=== PATIENT | female | born 1985 | race Caucasian/White ===

== ENCOUNTER 2023-09-04 13:09 | Emergency (ER) | payer MEDICAID ==
[~2023-09-04] VITALS: Ht 162.6 cm; Wt 68.0 kg
[2023-09-04 13:10] VITALS: BP_SYST 132; PULSE 102; RESP 17; TEMP 97.6; O2SAT 98
[2023-09-04 14:05] LABS: BILIRUBIN,URINE 2+ (NEGATIVE); BLOOD, URINE 3+ (NEGATIVE); GLUCOSE,URINE 1+ (NEGATIVE); KETONES,URINE TRACE (NEGATIVE); LEUKOCYTE ESTERASE ,URINE 2+ (NEGATIVE); NITRITE, URINE POSITIVE (NEGATIVE); PH,URINE 6.5 (5.0-8.0); PROTEIN URINE 3+ (NEGATIVE)
[2023-09-04 14:08] LABS: CLARITY/URINE HAZY (CLEAR); UROBILINOGEN,URINE >=8 (0.2-1.0)
[2023-09-04 14:25] LABS: BACTERIA,URINE RARE /HPF (None Seen); RBC,URINE 20-50 /HPF (0-3)
[2023-09-04 14:26] LABS: COLOR,URINE AMBER (YELLOW)
[2023-09-04] MEDS ORDERED: NITR-85 PO (15:17)
[2023-09-04] MEDS ORDERED: PHEN-726 PO (15:17)
[2023-09-04 15:28] VITALS: BP_SYST 132; PULSE 102; RESP 17; TEMP 97.6; O2SAT 98
== END 2023-09-04 15:28 | disposition home or self-care (01) ==
LOC: SED 13:09
DX: N39.0 Urinary tract infection, site not specified (principal); R31.9 Hematuria, unspecified; R35.0 Frequency of micturition; Z88.2 Allergy status to sulfonamides; Z79.899 Other long term (current) drug therapy
CPT/HCPCS: 81000; 81001; 81015; 87086; 87186; 99283

== ENCOUNTER 2023-10-02 12:32 | Emergency (ER) | payer MEDICAID ==
[~2023-10-02] VITALS: Ht 157.5 cm; Wt 73.5 kg
[~2023-10-02 12:32] MED LIST: NITR-85 PO; PHEN-726 PO
[2023-10-02 12:36] VITALS: BP_SYST 144; PULSE 92; RESP 18; TEMP 98.3; O2SAT 100
[2023-10-02 13:26] LABS: BILIRUBIN,URINE NEGATIVE (NEGATIVE); BLOOD, URINE 3+ (NEGATIVE); COLOR,URINE YELLOW (YELLOW); GLUCOSE,URINE NEGATIVE (NEGATIVE); KETONES,URINE NEGATIVE (NEGATIVE); LEUKOCYTE ESTERASE ,URINE NEGATIVE (NEGATIVE); NITRITE, URINE NEGATIVE (NEGATIVE); PROTEIN URINE NEGATIVE (NEGATIVE); UROBILINOGEN,URINE 0.2 (0.2-1.0)
[2023-10-02 13:44] LABS: CLARITY/URINE SLIGHTLY HAZY (CLEAR)
[2023-10-02 13:49] LABS: BACTERIA,URINE None Seen /HPF (None Seen); WBC,URINE 0-3 /HPF (0-3)
[2023-10-02 13:50] LABS: TRICHOMONAS,URINE Rare /HPF (None Seen)
[2023-10-02] MEDS: MORPHINE 2 MG/ML INJ. SYRINGE IVP ONE (14:41)
[2023-10-02] MEDS: NACL 0.9% 1,000 ML IV ONE (14:41)
[2023-10-02] MEDS: ONDANSETRON HCL 4 MG/2 ML VIAL IVP ONE (14:42)
[2023-10-02] MEDS: KETOROLAC TROMETHAMINE 30 MG VIAL IVP ONE (14:42)
[2023-10-02 14:52] LABS: BASOPHILS # (AUTO) 0.1 K/uL (0.0-0.2); BASOPHILS % (AUTO) 0.5 % (0.0-2.0); EOSINOPHILS # (AUTO) 0.2 K/uL (0.0-0.4); EOSINOPHILS % (AUTO) 2.2 % (0.0-4.0); HEMATOCRIT 40.9 % (36-48); LYMPHOCYTES # (AUTO) 1.8 K/uL (1.0-5.5); LYMPHOCYTES % (AUTO) 16.3 % (20.5-51.5); MEAN CORPUSCULAR HEMOGLOBIN 31 pg (27-31); MEAN CORPUSCULAR HGB CONC 34 % (32-36); MEAN CORPUSCULAR VOLUME 92 fL (79.0-98.0); MONOCYTES # (AUTO) 1.2 K/uL (0.0-1.0); MONOCYTES % (AUTO) 10.9 % (1.7-9.3); NEUTROPHILS # (AUTO) 7.6 K/uL (1.8-7.7); NEUTROPHILS % (AUTO) 70.1 % (40.0-70.0); PLATELET COUNT (AUTO) 332 K/uL (130-430); RED BLOOD CELL COUNT(AUTO) 4.46 MIL/uL (4.2-6.2); RED CELL DISTRIBUTION WIDTH 12.7 % (9.0-15.0); WHITE BLOOD COUNT (AUTO) 10.8 K/uL (4.8-10.8)
[2023-10-02 14:55] LABS: CALCIUM 8.5 mg/dL (8.4-11.0); CREATININE 1.28 mg/dL (0.55-1.30); POTASSIUM 4.3 mmol/L (3.5-5.1)
[2023-10-02 14:59] LABS: ALBUMIN 3.5 g/dL (3.4-4.8); TOTAL BILIRUBIN 0.4 mg/dL (0.0-1.0); TOTAL PROTEIN, SERUM 7.4 g/dL (6.4-8.3)
[2023-10-02] MEDS ORDERED: METR-154 PO (16:28)
[2023-10-02] MEDS ORDERED: HYDR-3917 PO (16:29)
[2023-10-02] MEDS ORDERED: IBUP-1969 PO (16:29)
[2023-10-02 16:45] VITALS: BP_SYST 137; PULSE 92; RESP 18; TEMP 98.9; O2SAT 96
== END 2023-10-02 16:40 | disposition home or self-care (01) ==
LOC: SED 12:32
DX: R10.9 Unspecified abdominal pain (principal); R11.0 Nausea; R30.0 Dysuria; F17.210 Nicotine dependence, cigarettes, uncomplicated; Z88.2 Allergy status to sulfonamides; Z79.899 Other long term (current) drug therapy
CPT/HCPCS: 99285; 74176; 96374; 96375; 96361; 80053; 81001; 83690; 85025; 36415; 81025; 81000; 81015; J1885; J2405; J2270; J7030